=== PATIENT | male | born 1965 | race Caucasian/White ===

== ENCOUNTER 2018-07-16 07:24 | Day surgery (SDC) | payer OTHER, MEDICARE ==
[2018-07-15 08:55] VITALS: BMI 30.7
[2018-07-16] MEDS ORDERED: Fentanyl 100 MCG/2 ML VIAL ONE (09:26)
--- NOTE | 2018-07-16 09:47 | RAD ---
FRONTAL VIEW ABDOMEN: Date: 07/16/18 INDICATION: Preoperative evaluation. FINDINGS: There is a left side ureteral stent. Superimposed upon the proximal coil, there is a subtle radiopaqu e density that could relate to urolithiasis. Imaged bowel gas pattern is nonobstructed. IMPRESSION: Left ureteral stent. Superimposed upon the proximal coil, there is subtle density that may relate to urolithiasis. POS: C
[2018-07-16 09:57] LABS: Platelet Count 382 thou/uL (130-400)
[2018-07-16] MEDS ORDERED: Midazolam HCl 2 mg/2 ml Vial ONE (10:44)
--- NOTE | 2018-07-16 13:52 | OP ---
DATE OF PROCEDURE: 07/16/2018 PREOPERATIVE DIAGNOSIS: Left renal stone and stent. POSTOPERATIVE DIAGNOSIS: Left renal stone and stent. PROCEDURE PERFORMED: Left extracorporeal shock wave lithotripsy. ANESTHESIA: General. ESTIMATED BLOOD LOSS: Not recorded. FINDINGS: There is a 1.1 cm left UPJ/renal pelvic stone adjacent to the stent, treated with 2500 shocks at maximum kv level of 5. The stent was left indwelling. DESCRIPTION OF PROCEDURE: Obtained written and verbal consent from the patient after documenting normal preoperative blood work, being sure we could see the stone on his preoperative x-ray. He was taken to the operating suite. He was placed in the supine position on the treatment table. PlexiPulses were placed on his lower extremities and turned on. He was given a general anesthetic and oral intubation and coupled to the lithotripsy unit. The stone was placed in treatment focal point, shockwave therapy was commenced at a low KUB and a low rate. After couple 100 shocks, 5-minute pause was given. We then resumed the treatment and slowly increased the kv to level 5, which it was maintained on. Fluoroscopy was used intermittently to reposition as necessary. The stone did appear to have spread out, some which would indicate normally that would be fragmenting. After 2500 shocks, the procedure was terminated. He was awakened, extubated, and taken by stretcher to recovery room. Job ID: [id number]
[2018-07-16] MEDS ORDERED: Lidocaine 1% PF 5 ML VIAL ONE (15:47)
[2018-07-16] MEDS ORDERED: Ondansetron PF 4 MG/2 ML Vial ONE (15:47)
[2018-07-16] MEDS ORDERED: PROPOFOL 200 MG/20 ML VIAL ONE (15:47)
[2018-07-16] MEDS ORDERED: PHENYLEPHRINE-NS 100 MCG/ML 10 ML SYRINGE ONE (15:47)
== END 2018-07-16 15:40 | disposition home or self-care (01) ==
LOC: SDC 07:24
PROVIDERS: ATTEND Urology
PROC: 0TF4XZZ Fragmentation in Left Kidney Pelvis, External Approach (ICD-10-PCS; principal; 2018-07-16)
DX: N20.0 Calculus of kidney (principal); F32.9 Major depressive disorder, single episode, unspecified; G12.21 Amyotrophic lateral sclerosis; K21.9 Gastro-esophageal reflux disease without esophagitis; G47.30 Sleep apnea, unspecified; Z79.899 Other long term (current) drug therapy; Z88.8 Allergy status to other drugs, medicaments and biological substances
CPT/HCPCS: 74018; 85576; J2001; J2250; J2405; J2704; J3010